=== PATIENT | female | born 1995 | race African-American/Black ===

== ENCOUNTER 2017-06-15 21:52 | Emergency (ER) | payer BC, OTHER ==
[~2017-06-15] VITALS: Ht 165.1 cm; Wt 99.8 kg
[~2017-06-15 21:52] MED LIST: ATARAX25 MG PO; IBU-6600 MG PO; KEFLEX500 MG PO; KENALOG0.1% TP; MOTRIN100 MG/5 M PO; MOTRIN400 MG PO; MOTRIN600 MG PO; MOTRIN800 MG PO; STRATTERA80 MG PO; TOPAMAX50 MG PO; ZANTAC50 MG/2 ML PO; ZITHROMAX Z PA250 MG PO; ZYRTEC10 M1 PO
[2017-06-15 22:47] LABS: BILIRUBIN NEGATIVE (NEGATIVE); BLOOD NEGATIVE (NEGATIVE); CLARITY CLEAR (CLEAR); COLOR YELLOW (YELLOW); GLUCOSE NEGATIVE (NEGATIVE); KETONE NEGATIVE (NEGATIVE); LEUKO ESTERASE NEGATIVE (NEGATIVE); NITRITE NEGATIVE (NEGATIVE)
[2017-06-15 22:55] LABS: BACTERIA 1+; RBC 0-2 rbc/hpf (0-2)
[2017-06-15 23:12] LABS: BASO % 0.3 % (0.0-1.0); HEMATOCRIT 37.6 % (37.0-47.0); HEMOGLOBIN 12.6 g/dl (12.0-16.0); LYMPH # 0.8 10*3/uL (1.3-4.4); MEAN CELL VOLUME 89.1 fl (81.0-99.0); MEAN CORPUSCULAR HGB 29.9 pg (27.0-31.0); MEAN CORPUSCULAR HGB CONC 33.5 g/dl (33.0-37.0); MEAN PLATELET VOLUME 9.6 fl (9.6-12.3); MONO # 0.9 10*3/uL (0.1-1.0); MONO % 9.8 % (3.0-9.0); NEUT # 7.3 10*3/uL (2.3-7.9); NEUT % 80.6 % (47.0-73.0); PLATELET COUNT AUTOMATED 263 10*3/uL (130-400); RED BLOOD COUNT 4.22 10*6/uL (4.10-5.10); RED CELL DISTRI WIDTH 12.1 % (0-14.5); WHITE BLOOD COUNT 9.1 10*3/uL (4.8-10.8)
[2017-06-15 23:26] LABS: ALBUMIN 3.6 gm/dl (3.1-4.5); ALKALINE PHOSPHATASE 107 U/L (45-117); BUN 8 mg/dl (7-24); CHLORIDE 106 mmol/L (98-107); CREATININE 0.96 mg/dL (0.55-1.02); POTASSIUM 3.6 mmol/L (3.5-5.1); SGOT/AST 20 IU/L (3-35); SGPT/ALT 26 U/L (12-78); SODIUM 140 mmol/L (136-145); TOTAL PROTEIN 7.1 gm/dL (6.4-8.2)
[2017-06-16 00:52] VITALS: BP 113/67
== END 2017-06-16 00:59 | disposition home or self-care (01) ==
LOC: ED 21:52
PROVIDERS: Student in an Organized Health Care Education/Training Program
DX: R10.31 Right lower quadrant pain (principal)

== ENCOUNTER 2018-12-16 01:26 | Emergency (ER) | payer BC ==
[~2018-12-16] VITALS: Ht 165.1 cm; Wt 113.4 kg
[2018-12-16 01:27] VITALS: BP 157/96
== END 2018-12-16 02:22 | disposition home or self-care (01) ==
LOC: ED 01:26
DX: J00 Acute nasopharyngitis [common cold] (principal); H92.03 Otalgia, bilateral; F17.200 Nicotine dependence, unspecified, uncomplicated; Z02.79 Encounter for issue of other medical certificate

== ENCOUNTER 2022-05-25 21:45 | Emergency (ER) | payer SELFPAY ==
[~2022-05-25] VITALS: Ht 162.5 cm; Wt 113.4 kg
[2022-05-25 21:55] VITALS: BP 153/94
[2022-05-25 22:49] LABS: BASO % 0.4 % (0.0-1.0); EOS % 0.3 % (1.0-4.0); HEMATOCRIT 38.5 % (37.0-47.0); LYMPH # 3.4 10*3/uL (1.3-4.4); LYMPH % 32.5 % (27.0-41.0); MEAN CELL VOLUME 89.3 fl (81.0-99.0); MEAN CORPUSCULAR HGB 29.5 pg (27.0-31.0); MEAN PLATELET VOLUME 9.8 fl (9.6-12.3); MONO # 0.8 10*3/uL (0.1-1.0); MONO % 7.9 % (3.0-9.0); NEUT # 6.2 10*3/uL (2.3-7.9); NEUT % 58.6 % (47.0-73.0); PLATELET COUNT AUTOMATED 329 10*3/uL (130-400); RED BLOOD COUNT 4.31 10*6/uL (4.10-5.10); RED CELL DISTRI WIDTH 12.4 % (0-14.5); WHITE BLOOD COUNT 10.5 10*3/uL (4.8-10.8)
[2022-05-25 23:25] LABS: ALKALINE PHOSPHATASE 58 U/L (46-116); BUN 10 mg/dl (9-23); CHLORIDE 103 mmol/L (98-107); CREATININE 1.09 mg/dL (0.55-1.02); POTASSIUM 3.6 mmol/L (3.4-5.1); SGPT/ALT 12 U/L (10-49); SODIUM 137 mmol/L (136-145)
[2022-05-25 23:42] LABS: BILIRUBIN Negative (Negative); BLOOD Negative (Negative); CLARITY Clear (Clear); COLOR Yellow (Yellow); GLUCOSE Negative (Negative); KETONE Negative (Negative); LEUKO ESTERASE Negative (Negative); NITRITE Negative (Negative); PH 7.5 (4.5-8.0)
== END 2022-05-26 00:54 | disposition home or self-care (01) ==
LOC: ED 21:45
PROVIDERS: Physician Assistant
DX: O26.851 Spotting complicating pregnancy, first trimester (principal); F17.200 Nicotine dependence, unspecified, uncomplicated; Z3A.01 Less than 8 weeks gestation of pregnancy

== ENCOUNTER 2024-10-02 10:46 | Emergency (ER) | payer BC ==
[~2024-10-02] VITALS: Ht 165.1 cm; Wt 99.8 kg
[2024-10-02] MEDS ORDERED: PENICILLIN-VK500 MG PO (11:10)
[2024-10-02] MEDS ORDERED: BENZOCAINE 20% 11.9 GM GEL T STA (11:11)
[2024-10-02] MEDS ORDERED: Lidocaine Hydrochloride 15 ML UDC PO STA (11:11)
[2024-10-02 11:41] VITALS: BP 150/90
== END 2024-10-02 11:26 | disposition home or self-care (01) ==
LOC: ED 10:46
DX: K02.9 Dental caries, unspecified (principal)

== ENCOUNTER → 2024-11-24 | Outpatient (CLI) | payer BC, MEDICAID ==
[~2024-11-24] MED LIST changes: +PENICILLIN-VK500 MG PO
[2024-11-24 12:42] LABS: HEMATOCRIT 43.1 % (37.0-47.0); MEAN CORPUSCULAR HGB 29.5 pg (27.0-31.0); MEAN CORPUSCULAR HGB CONC 33.2 g/dl (33.0-37.0); MEAN PLATELET VOLUME 9.3 fl (9.6-12.3); RED BLOOD COUNT 4.84 10*6/uL (4.10-5.10); RED CELL DISTRI WIDTH 12.2 % (0-14.5); WHITE BLOOD COUNT 18.4 10*3/uL (4.8-10.8)
[2024-11-24 13:23] LABS: VITAMIN D, 25-HYDROXY 23.8 ng/mL (30-100)
[2024-11-24 13:24] LABS: ALKALINE PHOSPHATASE 80 U/L (46-116); BUN 9 mg/dl (9-23); CHLORIDE 103 mmol/L (98-107); CHOLESTEROL 181 mg/dL (<200); CPK 38 U/L (34-171); FREE T4 1.59 ng/dl (0.89-1.76); LDL CHOLESTEROL 121 mg/dL (9-159); POTASSIUM 3.9 mmol/L (3.4-5.1); SGPT/ALT 179 U/L (5-49); TOTAL PROTEIN 6.9 gm/dL (6.0-8.0); TRIGLYCERIDES 97 mg/dl (<150)
== END | disposition home or self-care (01) ==
LOC: LAB 12:06
PROVIDERS: ATTEND Family Medicine
DX: E78.00 Pure hypercholesterolemia, unspecified (principal); E55.9 Vitamin D deficiency, unspecified; R53.83 Other fatigue; M25.50 Pain in unspecified joint

== ENCOUNTER → 2024-12-22 | Outpatient (CLI) | payer BC, MEDICAID ==
[2024-12-22 13:40] LABS: MEAN CELL VOLUME 88.5 fl (81.0-99.0); MEAN CORPUSCULAR HGB 30.1 pg (27.0-31.0); MEAN PLATELET VOLUME 9.2 fl (9.6-12.3); NUCLEATED RED BLOOD CELL 0.0 % (0.0-0.0); NUCLEATED RED BLOOD CELL 0.0 10*3/uL (0.0-0.0); PLATELET COUNT AUTOMATED 316.0 10*3/uL (130-400); RED CELL DISTRI WIDTH 12.6 % (0-14.5)
[2024-12-22 14:05] LABS: BUN 8 mg/dl (9-23); SGPT/ALT 16 U/L (5-49)
== END | disposition home or self-care (01) ==
LOC: LAB 13:22
PROVIDERS: ATTEND Family Medicine
DX: D72.829 Elevated white blood cell count, unspecified (principal); R74.01 Elevation of levels of liver transaminase levels; R76.8 Other specified abnormal immunological findings in serum; R76.0 Raised antibody titer